=== PATIENT | male | born 1960 | race Two or more races ===

== ENCOUNTER 2024-11-06 06:45 | Day surgery (SDC) | payer BC, SELFPAY ==
[2024-11-05 11:35] VITALS: BMI 25.8
[2024-11-06] VITALS (9 sets, daily range): BP systolic 132–188; BP diastolic 70–94; PULSE 55–70; RESP 13–20; TEMP 36.2–36.5; O2SAT 96–100; BMI 25.3
[2024-11-06] MEDS: SODIUM CHLORIDE 0.9% 500 ML 500 ML 125 ML IV (07:29)
[2024-11-06] MEDS: fentaNYL CIT INJ 50 mCg/ML AMP 2ML (ASD USE ONLY) IVP (07:30)
[2024-11-06] MEDS: MIDAZOLAM INJ 1 MG/ML VIAL 2 ML (ASD USE ONLY) 2 MG IVP (07:30)
== END 2024-11-06 08:18 | disposition home or self-care (01) ==
PROVIDERS: PCP Physician Assistant; Referring Provider Surgery; Visit Provider Surgery
PROC: 0DBE8ZX Excision of Large Intestine, Via Natural or Artificial Opening Endoscopic, Diagnostic (ICD-10-PCS; CPT 45380; principal; 2024-11-06 07:30)
DX: Z12.11 Encounter for screening for malignant neoplasm of colon (principal); K64.1 Second degree hemorrhoids; Z86.0100 Personal history of colon polyps, unspecified; N40.0 Benign prostatic hyperplasia without lower urinary tract symptoms; E78.00 Pure hypercholesterolemia, unspecified
CPT/HCPCS: 45378; J1200; J2250; J3010; J7999